=== PATIENT | male | born 1950 | race Caucasian/White ===

== ENCOUNTER → 2017-03-19 | Outpatient (CLI) | payer MEDICARE ==
[~2017-03-19] MED LIST: GADOBUTROL 7.5 MMOL/7.5 ML PFS ONE
== END | disposition home or self-care (01) ==
LOC: CFH 08:58
PROVIDERS: ATTEND Specialist
DX: J35.1 Hypertrophy of tonsils (principal)
CPT/HCPCS: 70543; A9585

== ENCOUNTER → 2017-08-07 | Outpatient (CLI) | payer MEDICARE ==
[~2017-08-07] MED LIST changes: +GADOBUTROL 10 MMOL/10 ML PFS ONE; -GADOBUTROL 7.5 MMOL/7.5 ML PFS ONE
== END | disposition home or self-care (01) ==
LOC: CFH 09:41
PROVIDERS: ATTEND Ophthalmology
DX: H47.10 Unspecified papilledema (principal); H53.8 Other visual disturbances
CPT/HCPCS: 70543; 70553; A9585

== ENCOUNTER → 2018-02-27 | Outpatient (CLI) | payer MEDICARE | END | disposition home or self-care (01) | LOC: CFH 14:36 | PROVIDERS: ATTEND Ophthalmology | DX: H47.10 Unspecified papilledema (principal); H47.013 Ischemic optic neuropathy, bilateral; H46.9 Unspecified optic neuritis; H47.019 Ischemic optic neuropathy, unspecified eye; H54.7 Unspecified visual loss | CPT/HCPCS: 36415; 70543; 70553; 82565; 84520; A9585 ==

== ENCOUNTER 2018-03-18 14:18 | Inpatient (IN) | payer MEDICARE ==
[~2018-03-18] VITALS: Ht 182.9 cm; Wt 81.2 kg
[2018-03-18 14:52] LABS: MEAN CORPUSCULAR HEMOGLOBIN 33.6 pg (27.5-34.5); MEAN CORPUSCULAR HGB CONC 35.4 g/dL (33.2-36.2); MEAN CORPUSCULAR VOLUME 94.8 fL (81-97); MEAN PLATELET VOLUME 9.7 fL (7.4-10.4); PLATELET COUNT 179 x10^3/uL (130-400); RED BLOOD COUNT 4.99 x10^6/uL (4.38-5.82); RED CELL DISTRIBUTION WIDTH 13.3 % (9.4-14.8)
[2018-03-18 14:55] LABS: ALANINE AMINOTRANSFERASE 34 U/L (12-78); ALBUMIN 3.4 g/dL (3.4-5.0); ANION GAP 11 mmol/L (5-15); CALCIUM 8.9 mg/dL (8.5-10.1); CHLORIDE 109 mmol/L (98-107); CREATININE 1.05 mg/dL (0.7-1.3)
[2018-03-18 14:57] LABS: D-DIMER 0.42 ug/mlFEU (0.00-0.52); INTERNATIONAL NORMALIZED RATIO 1.08 (0.93-1.1); PROTHROMBIN TIME 11.1 Seconds (9.6-11.5)
[2018-03-18 15:00] LABS: ALKALINE PHOSPHATASE 61 U/L (45-117); BILIRUBIN,TOTAL 0.7 mg/dL (0.2-1.0); TOTAL PROTEIN 7.9 g/dL (6.4-8.2); TROPONIN I < 0.015 ng/mL (0.000-0.045)
[2018-03-18 15:08] LABS: MD YES
[2018-03-18] MEDS ORDERED: MORPHINE SULFATE 4 MG/ML, 1ML ONE (15:09)
[2018-03-18 15:11] LABS: <PLATELET ESTIMATE> ADEQUATE; <PLT MORPHOLOGY> NORMAL PLT MORPH; <RBC MORPHOLOGY> NORMAL; EOS#(MANUAL) 0.05 x10^3/uL (0.0-0.4); EOS% (MANUAL) 1 % (1-7); LYMPH#(MANUAL) 1.95 x10^3/uL (1-3.4); LYMPHS% (MANUAL) 39 % (22-44); MONOS% (MANUAL) 18 % (2-9); SEGS% (MANUAL) 42 % (42-75)
[2018-03-18] MEDS ORDERED: OMNIPAQUE 350 MG/ML, 100ML BOTTLE ONE (15:15)
[2018-03-18] MEDS ORDERED: morphine SULFATE 10 MG/ML, 1ML IVPush ONE (15:30)
[2018-03-18] MEDS ORDERED: KETOROLAC 30 MG/1 ML ONE (15:43)
[2018-03-18] MEDS ORDERED: SODIUM CHLORIDE 0.9%, 500ML IVBOLUS ONE (16:00)
[2018-03-18] MEDS ORDERED: KETOROLAC 30 MG/1 ML IVPush ONE (16:00)
[2018-03-18] MEDS ORDERED: ASPIRIN 81 MG TABLET CHEW PO ONE (16:30)
[2018-03-18 17:22] VITALS: BP 173/90
[2018-03-18] MEDS ORDERED: ONDANSETRON 2MG/ML, 2ML IVPush PRN (18:00)
[2018-03-18] MEDS ORDERED: ENALAPRILAT 1.25 MG/ML, 2ML IVPush PRN (18:00)
[2018-03-18] MEDS ORDERED: morphine SULFATE 10 MG/ML, 1ML IVPush PRN (18:00)
[2018-03-18] MEDS ORDERED: ACETAMINOPHEN 325 MG TABLET PO PRN (18:00)
[2018-03-18] MEDS: INSULIN LISPRO 100 UNITS/ML, PEN SQ-INSULIN SCH ×2 (18:16→21:00)
[2018-03-18 18:30] VITALS: BP 164/96
[2018-03-18] MEDS: METOPROLOL TARTRATE 50 MG TABLET PO SCH (18:30)
[2018-03-18 19:01] LABS: HEMOGLOBIN A1C 6.9 % (4.2-6.3)
[2018-03-18] MEDS: CEFTRIAXONE 2 GM in SODIUM CHLORIDE 0.9% 50 ML IV SCH (19:57)
[2018-03-18] MEDS ORDERED: ENOXAPARIN 40 MG/0.4 ML SQ SCH (20:00)
[2018-03-18] MEDS: DOXYCYCLINE 100MG TABLET PO SCH (20:52)
[2018-03-18 21:31] VITALS: BP 161/98
[2018-03-18 23:16] VITALS: BP 155/94
[2018-03-18] MEDS ORDERED: HEPARIN 5,000 UNITS/ML, 1ML IV ONE (23:45)
[2018-03-18] MEDS ORDERED: HEPARIN 5,000 UNITS/ML, 1ML IV PRN (23:45)
[2018-03-18] MEDS ORDERED: HEPARIN 25,000 UNITS/500ML PMX 500 ML IV PRN (23:45)
[2018-03-19 02:45] VITALS: BP 168/93
[2018-03-19 05:19] LABS: CHOLESTEROL, TOTAL 128 mg/dL (140-239); TRIGLYCERIDES 96 mg/dL (50-200); VLDL CHOLESTEROL 19 mg/dL (0-25)
[2018-03-19 05:23] LABS: HDL CHOL % 33 % (26-37); HDL CHOLESTEROL (DIRECT) 42 mg/dL (40-60); LDL CHOLESTEROL,CALCULATED 67 mg/dL (54-169); LDL/HDL RATIO 1.6 (0.5-3.0)
[2018-03-19 06:07] VITALS: BP 156/92
[2018-03-19] MEDS: METOPROLOL TARTRATE 50 MG TABLET PO SCH ×2 (06:08→18:08)
[2018-03-19] MEDS: INSULIN LISPRO 100 UNITS/ML, PEN SQ-INSULIN SCH ×4 (07:00→20:06)
[2018-03-19 07:16] VITALS: BP 151/96
[2018-03-19] MEDS: DOXYCYCLINE 100MG TABLET PO SCH ×2 (08:11→21:06)
[2018-03-19] MEDS ORDERED: SODIUM CHLORIDE 0.9% 1,000 ML IV ONE (09:50)
[2018-03-19 14:00] VITALS: BP 123/76
[2018-03-19] MEDS ORDERED: FENTANYL PF 100 MCG/2ML ONE ×2 (14:30→14:33)
[2018-03-19] MEDS ORDERED: HEPARIN 1,000 UNITS/ML, 10ML ONE ×2 (14:30→14:33)
[2018-03-19] MEDS ORDERED: VERAPAMIL 2.5 MG/ML, 2ML ONE ×2 (14:30→14:33)
[2018-03-19] MEDS ORDERED: MIDAZOLAM 1 MG/ML, 5ML ONE ×2 (14:30→14:33)
[2018-03-19] MEDS ORDERED: LIDOCAINE-MPF 2%, 2ML ONE ×2 (14:31→14:34)
[2018-03-19] MEDS ORDERED: BIVALIRUDIN 250 MG ONE ×2 (14:31→14:33)
[2018-03-19] MEDS ORDERED: TICAGRELOR 90 MG TABLET ONE ×2 (14:31→14:33)
[2018-03-19] MEDS ORDERED: PRASUGREL 10 MG TABLET ONE (15:19)
[2018-03-19] MEDS ORDERED: BIVALIRUDIN 250 MG in DEXTROSE 5% 100 ML IV SCH (15:25)
[2018-03-19] MEDS ORDERED: SODIUM CHLORIDE 0.9% 1,000 ML IV SCH (15:25)
[2018-03-19] MEDS ORDERED: ZOLPIDEM 5MG TABLET PO PRN (15:30)
[2018-03-19] MEDS: CEFTRIAXONE 2 GM in SODIUM CHLORIDE 0.9% 50 ML IV SCH (18:08)
[2018-03-19 19:14] VITALS: BP 128/85
[2018-03-20 03:13] VITALS: BP 130/70
[2018-03-20] MEDS: METOPROLOL TARTRATE 50 MG TABLET PO SCH ×2 (05:09→16:24)
[2018-03-20 05:51] LABS: ALBUMIN 3.2 g/dL (3.4-5.0); ANION GAP 12 mmol/L (5-15); CALCIUM 8.6 mg/dL (8.5-10.1); CHLORIDE 107 mmol/L (98-107)
[2018-03-20 05:53] LABS: CREATININE 0.96 mg/dL (0.7-1.3)
[2018-03-20] MEDS ORDERED: ASPIRIN 325 MG TABLET PO SCH (06:00)
[2018-03-20] MEDS: INSULIN LISPRO 100 UNITS/ML, PEN SQ-INSULIN SCH ×4 (07:00→20:13)
[2018-03-20 07:20] VITALS: BP 122/71
[2018-03-20] MEDS: PRASUGREL 10 MG TABLET PO SCH (08:17)
[2018-03-20] MEDS: DOXYCYCLINE 100MG TABLET PO SCH ×2 (08:17→20:12)
[2018-03-20 12:46] VITALS: BP 144/79
[2018-03-20] MEDS ORDERED: ENOXAPARIN 40 MG/0.4 ML SQ SCH (13:30)
[2018-03-20] MEDS ORDERED: CEFTRIAXONE PMX 2GM/50ML 50 ML IV SCH (18:00)
[2018-03-20 18:51] VITALS: BP 121/74
[2018-03-20] MEDS ORDERED: ATORVASTATIN 80 MG TABLET PO SCH (21:00)
[2018-03-21 03:16] VITALS: BP 125/70
[2018-03-21] MEDS: METOPROLOL TARTRATE 50 MG TABLET PO SCH (05:57)
[2018-03-21] MEDS ORDERED: ASPIRIN 81 MG TABLET EC PO SCH (06:00)
[2018-03-21] MEDS: INSULIN LISPRO 100 UNITS/ML, PEN SQ-INSULIN SCH ×2 (07:00→11:00)
[2018-03-21 07:20] VITALS: BP 121/80
[2018-03-21] MEDS: DOXYCYCLINE 100MG TABLET PO SCH (07:49)
[2018-03-21] MEDS: PRASUGREL 10 MG TABLET PO SCH (07:49)
[2018-03-21] MEDS ORDERED: METO50TA82 PO (11:10)
[2018-03-21] MEDS ORDERED: ATOR-2 PO (11:10)
[2018-03-21] MEDS ORDERED: PRAS10TA4 PO (11:10)
[2018-03-21] MEDS ORDERED: ASPI-621 PO (11:10)
[2018-03-21] MEDS ORDERED: DOXY100T PO (11:10)
[2018-03-21] MEDS ORDERED: CEFD300C37 PO (11:10)
[2018-03-21 12:26] VITALS: BP 121/70
== END 2018-03-21 13:05 | disposition home or self-care (01) | DRG 246 ==
LOC: MERGE 14:18 → EDSEX 14:18 → EDBD 14:18 → ED 16:20 → EDIP 16:21 → ED 16:27 → 5SO 17:05 → DCLOUNGE 03-21 12:52
PROVIDERS: ADMIT Internal Medicine; ATTEND Internal Medicine
PROC: 027034Z Dilation of Coronary Artery, One Artery with Drug-eluting Intraluminal Device, Percutaneous Approach (ICD-10-PCS; principal; 2018-03-19)
PROC: 4A023N7 Measurement of Cardiac Sampling and Pressure, Left Heart, Percutaneous Approach (ICD-10-PCS; 2018-03-19)
PROC: B2111ZZ Fluoroscopy of Multiple Coronary Arteries using Low Osmolar Contrast (ICD-10-PCS; 2018-03-19)
PROC: B2151ZZ Fluoroscopy of Left Heart using Low Osmolar Contrast (ICD-10-PCS; 2018-03-19)
DX: I21.4 Non-ST elevation (NSTEMI) myocardial infarction (principal); J18.9 Pneumonia, unspecified organism; I47.2 Ventricular tachycardia; I45.10 Unspecified right bundle-branch block; I10 Essential (primary) hypertension; I25.10 Atherosclerotic heart disease of native coronary artery without angina pectoris; F41.9 Anxiety disorder, unspecified; E78.5 Hyperlipidemia, unspecified; L40.9 Psoriasis, unspecified; F20.9 Schizophrenia, unspecified; Z80.0 Family history of malignant neoplasm of digestive organs; Z82.49 Family history of ischemic heart disease and other diseases of the circulatory system; Z87.891 Personal history of nicotine dependence
CPT/HCPCS: 36415; 71045; 71275; 80048; 80053; 80061; 82040; 82962; 83036; 83735; 84145; 84443; 84484; 85018; 85025; 85379; 85520; 85610; 85730; 87040; 93005; 93306; 93458; 96361; 96374; 96375; 99156; 99157; 99285; C1769; C1894; C9600; G0378; J0583; J0696; J1644; J1650; J1885; J2250; J3010; J3490; Q9967; C1725; C1874; C1887; J2270; J7040

== ENCOUNTER 2019-05-19 06:56 | Outpatient (CLI) | payer MEDICARE ==
[~2019-05-19 06:56] MED LIST changes: +ASPI81TA45 PO; +ATOR-2 PO; +CEFD300C37 PO; +DOXY100T PO; -GADOBUTROL 10 MMOL/10 ML PFS ONE; +METO50TA82 PO; +PRAS10TA4 PO
== END 2019-05-19 23:59 | disposition home or self-care (01) ==
LOC: CVU 06:56
PROVIDERS: ATTEND Internal Medicine Cardiovascular Disease
DX: R60.9 Edema, unspecified (principal); E11.9 Type 2 diabetes mellitus without complications; E78.5 Hyperlipidemia, unspecified; I10 Essential (primary) hypertension; I25.2 Old myocardial infarction; Z95.5 Presence of coronary angioplasty implant and graft
CPT/HCPCS: 93922

== ENCOUNTER 2020-02-12 01:59 | Emergency (ER) | payer MEDICARE ==
[~2020-02-12] VITALS: Ht 180.3 cm; Wt 77.6 kg
[2020-02-12 03:47] LABS: MEAN CORPUSCULAR HEMOGLOBIN 32.1 pg (27.5-34.5); MEAN CORPUSCULAR HGB CONC 33.9 g/dL (33.2-36.2); MEAN CORPUSCULAR VOLUME 94.7 fL (81-97); MEAN PLATELET VOLUME 9.6 fL (7.4-10.4); PLATELET COUNT 200 x10^3/uL (130-400); RED BLOOD COUNT 4.76 x10^6/uL (4.38-5.82)
[2020-02-12 03:49] LABS: ALANINE AMINOTRANSFERASE 22 U/L (12-78); ALBUMIN 3.9 g/dL (3.4-5.0); ANION GAP 5 mmol/L (5-15); CALCIUM 9.7 mg/dL (8.5-10.1); CHLORIDE 105 mmol/L (98-107); CREATININE 1.12 mg/dL (0.7-1.3)
[2020-02-12 03:52] LABS: ALKALINE PHOSPHATASE 95 U/L (45-117); BILIRUBIN,TOTAL 0.9 mg/dL (0.2-1.0); TOTAL PROTEIN 8.6 g/dL (6.4-8.2)
--- NOTE | 2020-02-12 03:52 | NUR ---
pt informed that urine sample needed, pt states he "just went prior to coming in and doesn't have to now, but will try momentarily." Pt provided with urine cup
[2020-02-12 04:26] LABS: MD YES
[2020-02-12 04:28] LABS: MICROSCOPIC AUTO
[2020-02-12 04:34] LABS: BAND#(MANUAL) 0.27 x10^3/uL; BANDS%(MANUAL) 3 % (0-7); EOS#(MANUAL) 0.27 x10^3/uL (0.0-0.4); EOS% (MANUAL) 3 % (1-7); LYMPH#(MANUAL) 1.87 x10^3/uL (1-3.4); LYMPHS% (MANUAL) 21 % (22-44); METAMYELOCYTES# (MANUAL) 0.18 x10^3/uL (0-0); METAMYELOCYTES% (MANUAL) 2 % (0-1); MONOS#(MANUAL) 1.51 x10^3/uL (0.3-2.7); MONOS% (MANUAL) 17 % (2-9); REACTIVE LYMPHS # (MANUAL) 0.09 x10^3/uL (0-0); REACTIVE LYMPHS % (MANUAL) 1 % (0-0); SEG#(MANUAL) 4.72 x10^3/uL (1.8-6.8); SEGS% (MANUAL) 53 % (42-75)
[2020-02-12 04:35] LABS: <RBC MORPHOLOGY> NORMAL; SMUDGE CELLS 1+
[2020-02-12 04:36] LABS: <PLATELET ESTIMATE> ADEQUATE; LARGE PLATELETS 1+
[2020-02-12 04:39] VITALS: BP 124/86
[2020-02-12] MEDS ORDERED: LIDODERM 5% PATCH TD ONE ×2 (04:51→05:00)
[2020-02-12] MEDS ORDERED: KETOROLAC 30 MG/1 ML ONE (04:51)
[2020-02-12] MEDS ORDERED: DIAZEPAM 5 MG TABLET ONE (04:51)
[2020-02-12] MEDS ORDERED: DIAZEPAM 5 MG TABLET PO ONE (05:00)
[2020-02-12] MEDS ORDERED: KETOROLAC 30 MG/1 ML IM ONE (05:00)
== END 2020-02-12 05:10 | disposition home or self-care (01) ==
LOC: ED 03:17
DX: S39.012A Strain of muscle, fascia and tendon of lower back, initial encounter (principal); I45.10 Unspecified right bundle-branch block; Z87.891 Personal history of nicotine dependence; X58.XXXA Exposure to other specified factors, initial encounter; Y93.89 Activity, other specified; Y92.89 Other specified places as the place of occurrence of the external cause; Y99.8 Other external cause status
CPT/HCPCS: 36415; 72131; 80053; 81001; 85025; 93005; 96372; 99285; J1885

== ENCOUNTER → 2020-04-14 | Outpatient (CLI) | payer MEDICARE | END | disposition home or self-care (01) | LOC: CFH 10:36 | PROVIDERS: ATTEND Physician Assistant Surgical | DX: M81.8 Other osteoporosis without current pathological fracture (principal) | CPT/HCPCS: 77080 ==

== ENCOUNTER → 2020-05-10 | Outpatient (CLI) | payer MEDICARE ==
[~2020-05-10] MED LIST changes: +REGADENOSON 0.4 MG/5 ML SYRINGE ONE
== END | disposition home or self-care (01) ==
LOC: CFH 08:06
PROVIDERS: ATTEND Internal Medicine Cardiovascular Disease
DX: Z01.818 Encounter for other preprocedural examination (principal); I25.10 Atherosclerotic heart disease of native coronary artery without angina pectoris; I45.10 Unspecified right bundle-branch block
CPT/HCPCS: 78452; 93017; A9502; J2785